=== PATIENT | male | born 1945 | race Caucasian/White ===

== ENCOUNTER 2022-08-01 10:41 | Emergency (ER) | payer MEDICARE, OTHER ==
[~2022-08-01] VITALS: Ht 175 cm; Wt 81.0 kg
[2022-08-01 10:50] VITALS: BP 149/88
[2022-08-01] MEDS ORDERED: IBUPROFEN 600 MG (MOTRIN) TAB PO ONE (12:15)
[2022-08-01] MEDS ORDERED: BALO80TA PO (12:54)
--- NOTE | 2022-08-01 12:54 | ED Cough/URI ---
General Chief Complaint: Fever-Adult/Adol Stated Complaint: FEVER-COUGH/CONGESTION Nursing Triage Note: ARRIVED VIA AMB TO [facility]. STATES HE WAS DX WITH THE FLU YESTERDAY AND CONTINUES TO HAVE A FEVER AND SORE THROAT. PT WAS STARTED ON TAMIFLU AND TESTED NEG FOR COVID. IBUPROFEN 2 TAB GIVEN AT 0800. Source: patient Exam Limitations: no limitations (YNES HAND APRN) History of Present Illness Date Seen by Provider: Aug 01, 2022 Time Seen by Provider: 12:52 Initial Comments This is a 77-year-old male who presented to the ER via POV with complaints of sore throat and fever. He was diagnosed with influenza yesterday and prescribed Tamiflu. States that the Tamiflu makes him very nauseated. He is still able to drink fluids at this time. Has taken Tylenol with minimal relief. He did take ibuprofen 2 tablets around 0800. No shortness of breath, chest pain, nausea, vomiting, abdominal pain. (YNES HAND APRN) Allergies and Home Medications Allergies Coded Allergies: No Known Drug Allergies (Unverified , 08/01/22) Patient Home Medication List Home Medication List Reviewed: Yes (YNES HAND APRN) Baloxavir Marboxil (Xofluza) 80 Mg Tablet, 80 MG PO ONCE Prescribed by: YNES HAND on 08/01/22 1254 Review of Systems Review of Systems Constitutional: see HPI (YNES HAND APRN) Past Obfzmcj-Gqagkl-Hmjkbk Hx Patient Social History Tobacco Use?: No Substance use?: No Alcohol Use?: No (YNES HAND APRN) Immunizations Up To Date COVID19 Vaccine Cleaning Professional: UNKNOWN (YNES HAND APRN) Physical Exam Vital Signs - First Documented 08/01/22 10:50 Temp 38.2 Pulse 84 Resp 16 B/P (MAP) 149/88 (108) Pulse Ox 96 O2 Delivery Room Air (JAIME VERDUGO MD) Capillary Refill : Less Than 3 Seconds (YNES HAND APRN) Height: '" Weight: lbs. oz. kg; 26.00 BMI Method: General Appearance: WD/WN, no apparent distress Eyes: Bilateral Eye Normal Inspection, Bilateral Eye PERRL, Bilateral Eye EOMI HEENT: PERRL/EOMI, normal ENT inspection Neck: full range of motion, supple, normal inspection Respiratory: lungs clear, normal breath sounds, no respiratory distress, no accessory muscle use Cardiovascular: regular rate, rhythm, no murmur Gastrointestinal: normal bowel sounds, non tender, soft Extremities: normal range of motion, normal inspection Neurologic/Psychiatric: no motor/sensory deficits, alert, normal mood/affect, oriented x 3 Skin: normal color, warm/dry (YNES HAND APRN) Progress/Results/Core Measures Suspected Sepsis SIRS Temperature: Pulse: 84 Respiratory Rate: 16 Blood Pressure 149 /88 Mean: 108 (YNES HAND APRN) Results/Orders Vital Signs/I&O 08/01/22 08/01/22 08/01/22 10:50 12:07 13:01 Temp 38.2 38.8 38.8 Pulse 84 Resp 16 B/P (MAP) 149/88 (108) Pulse Ox 96 O2 Delivery Room Air (JAIME VERDUGO MD) Vital Signs/I&O Capillary Refill : Less Than 3 Seconds (YNES HAND APRN) Blood Pressure Mean: 108 Progress Note : Progress Note Patient examined and in no acute distress. Discussed home treatments for his sore throat, can continue to take Tylenol and ibuprofen as needed. He can also gargle salt water, take tiny, warm liquids are also beneficial. Additionally discussed alternative to Tamiflu which would be Xofluza, this medication does work well if taken within the first 48 hours. All of the pharmacies are closed today, he would like to go ahead and have a prescription sent over as he is unable to tolerate the Tamiflu. Discharge plan of care reviewed and he is agreeable with plan. (YNES HAND APRN) Departure Impression Primary Impression: Influenza Disposition: HOME, SELF-CARE Condition: Stable Departure-Patient Inst. Decision time for Depature: 12:52 (YNES HAND APRN) Referrals: STACY ACEVEDO DO (PCP/Family) Primary Care Physician Patient Instructions: Flu, Adult ED Add. Discharge Instructions: Plan: 1. Discharge home. 2. If you are still running fever, you will need to stay home until you are fever free. 3. Salt water gargles, drink plenty of fluids. Rest. If you are unable to tolerate the Tamiflu you can stop this and we can send in a prescription for Xofluza which is a one-time dose you can sampler pickup tomorrow. 4. Clean areas that may have blood, stool, or body fluids on them. 5. Cover your mouth and nose when you cough or sneeze, throw away tissues, and wash hands immediately. 6. You can give Tylenol and ibuprofen as directed per package for fever reduction sheet. 7. Return to ER for any other new, concerning, or worsening symptoms. All discharge instructions reviewed with patient and/or family. Voiced understanding. Scripts Baloxavir Marboxil (Xofluza) 80 Mg Tablet 80 MG PO ONCE for 1 Day, #1 TAB 0 Refills Prov: YNES HAND APRN 08/01/22 ATTENDING PHYSICIAN NOTE: Testing for influenza and COVID-19 was ordered based on chief complaint. However, it was then discovered he had already been tested for influenza and COVID-19, and he was positive for influenza and appropriately treated. I was physically present as attending physician in the emergency department during the care of this patient, but I was not otherwise directly involved in the decision making or delivery of care for this patient. (JAIME VERDUGO MD) YNES HAND APRN Aug 01, 2022 12:54 JAIME VERDUGO MD Aug 02, 2022 06:19
== END 2022-08-01 13:01 | disposition home or self-care (01) ==
LOC: ER 10:44
DX: J11.1 Influenza due to unidentified influenza virus with other respiratory manifestations (principal); Z28.310 Unvaccinated for COVID-19
CPT/HCPCS: 99283